=== PATIENT | male | born 1960 | race African-American/Black ===

== ENCOUNTER 2018-02-22 14:39 | Emergency (ER) | payer OTHER ==
[~2018-02-22] VITALS: Ht 190.5 cm; Wt 93.0 kg
[2018-02-22] MEDS ORDERED: SODIUM CHLORIDE 0.9% 1,000 ML IV ONE (15:27)
[2018-02-22] MEDS ORDERED: LORAZEPAM 2MG/ML CPJ IV ONE (15:30)
[2018-02-22 15:44] LABS: BASOPHILS % 1.1 % (0.0-2.0); HEMATOCRIT. 39.5 % (42.0-52.0); HEMOGLOBIN. 13.2 g/dL (14.0-18.0); MEAN CORPUSCULAR HEMOGLOBIN 30.5 pg (28.0-32.0); MEAN CORPUSCULAR VOLUME 91.2 fL (80.0-94.0); MEAN PLATELET VOLUME 7.4 fl (7.4-10.4); MONOCYTES % 8.9 % (2.0-8.0); PLATELET 250 x1000/uL (130-400); RED BLOOD CELL COUNT 4.33 mill/uL (4.7-6.1); RED CELL DISTRIBUTION WIDTH 13.7 % (11.6-14.6)
[2018-02-22 15:49] LABS: CHLORIDE 107 mEq/L (98-107)
[2018-02-22 15:52] LABS: PARTIAL THROMBOPLASTIN TIME 26.5 sec (23.4-31.0); PROTHROMBIN TIME 10.7 sec (9.4-11.6)
[2018-02-22 15:56] LABS: AMMONIA < 10 uMol/L (<32)
[2018-02-22 15:57] LABS: CREATINE KINASE 147 IU/L (39-308)
[2018-02-22 19:02] VITALS: BP 164/104
== END 2018-02-22 19:07 | disposition home or self-care (01) ==
LOC: ER 17:22
DX: M62.838 Other muscle spasm (principal); I10 Essential (primary) hypertension; E86.0 Dehydration; E11.9 Type 2 diabetes mellitus without complications; Z88.8 Allergy status to other drugs, medicaments and biological substances
CPT/HCPCS: 36415; 80053; 82140; 82550; 82962; 83690; 83880; 84443; 84484; 85025; 85610; 85730; 93970; 96361; 96374; 99285; J2060; J7030; Z7610

== ENCOUNTER 2018-02-24 11:26 | Emergency (ER) | payer OTHER ==
[~2018-02-24] VITALS: Ht 188 cm; Wt 92.0 kg
[2018-02-24 12:04] LABS: CLARITY URINE CLEAR (CLEAR); COLOR URINE YELLOW (YELLOW); KETONES URINE NEGATIVE (NEGATIVE); LEUKOCYTE ESTERASE URINE NEGATIVE (NEGATIVE); NITRITE URINE NEGATIVE (NEGATIVE); OCCULT BLOOD URINE NEGATIVE (NEGATIVE); PH URINE 5.5 (4.5-8.0); PROTEIN URINE NEGATIVE (NEGATIVE); SPECIFIC GRAVITY URINE 1.009 (1.005-1.030); UROBILINOGEN URINE 0.2 E.U./dL (0.2-1.0)
[2018-02-24] MEDS ORDERED: DIAZEPAM 2 MG TABLET PO ONE (18:15)
[2018-02-24 18:43] VITALS: BP 119/82
== END 2018-02-24 18:46 | disposition home or self-care (01) ==
LOC: ER 15:30
DX: M54.5 Low back pain (principal); E11.9 Type 2 diabetes mellitus without complications; F17.200 Nicotine dependence, unspecified, uncomplicated
CPT/HCPCS: 81003; 99283

== ENCOUNTER 2018-03-12 18:00 | Emergency (ER) | payer OTHER ==
[~2018-03-12] VITALS: Ht 188 cm; Wt 88.0 kg
[2018-03-12 18:01] VITALS: BP 120/82
== END 2018-03-12 20:20 | disposition left against medical advice (07) ==
LOC: ER 18:15
DX: M79.604 Pain in right leg (principal); M79.605 Pain in left leg; Z53.21 Procedure and treatment not carried out due to patient leaving prior to being seen by health care provider